=== PATIENT | male | born 1980 | race Hispanic/Latino ===

== ENCOUNTER 2019-07-03 18:37 | Inpatient (IN) | payer OTHER ==
[~2019-07-03] VITALS: Ht 182.9 cm; Wt 124.4 kg
--- OUTSIDE RECORDS SUMMARY | 2019-07-03 18:40 | XMS REPORT | Summary of Care ---
Author Author Fanny Trujillo M.A. Unknown Address Unknown Phone Unavailable Care Team Providers Care Police And Fire Dispatcher Name Role Phone MARION Covington, GREGORIO Unavailable Unavailable ANASTASIA Higgins, THO Unavailable Unavailable MANUEL Covington, LULU Unavailable Unavailable Fanny Trujillo M.A. Unavailable Unavailable FER PAINTING [place], SHREYA Brower Unavailable Unavailable Marion PAINTING, Gregorio Unavailable Unavailable FER Covington, SHREYA Garcia Unavailable Manuel PAINTING, Lulu Unavailable Unavailable Unavailable Unavailable Functional Status Name Dates Details Functional status health issues are not documented Status: Name Dates Details Cognitive status health issues are not documented Status: Problems Name Dates Details Need for immunization against influenza (V04.81, Z23) Status: Active Diabetic retinopathy (250.50, E11.319) Status: Active Diabetic nephropathy (250.40, E11.21) Status: Active Diabetic neuropathy (250.60, E11.40) Status: Active Essential (primary) hypertension (401.9, I10) Status: Active Proteinuria (791.0, R80.9) Status: Active Proliferative diabetic retinopathy (250.50, E11.3599) Status: Active Uncontrolled diabetes mellitus (250.02, E11.65) Status: Active Type 2 diabetes mellitus (250.00, E11.9) Status: Active Cellulitis of left lower extremity (682.6, L03.116) Status: Active Onychomycosis of toenail (110.1, B35.1) Status: Active Edema of left lower extremity (782.3, R60.0) Status: Active Chronic kidney disease, stage III (moderate) (585.3, N18.3) Status: Active Mild nonproliferative diabetic retinopathy of both eyes without macular edema associated with type 2 diabetes mellitus (250.50, E11.3293) Status: Active Acute upper respiratory infection (465.9, J06.9) Status: Active Hyperkalemia (276.7, E87.5) Status: Active PORSHA (acute kidney injury) (584.9, N17.9) Status: Active Uncontrolled type 2 diabetes mellitus with stage 3 chronic kidney disease, with long-term current use of insulin (250.52, E11.22) Status: Active Hyperlipidemia (272.4, E78.5) Status: Active Skin ulcer of left foot, limited to breakdown of skin (707.15, L97.521) Status: Active Subacute osteomyelitis of left foot (730.07, M86.272) Status: Active Hospital discharge follow-up (V67.59, Z09) Status: Active Pain in left knee (719.46, M25.562) Status: Active BMI 37.0-37.9, adult (V85.37, Z68.37) Status: Active Medications Name Dates Details Lisinopril 40 MG Oral Tablet TAKE 1 TABLET DAILY FOR BLOOD PRESSURE. Quantity: 90 GREGORIO SCHULTZ M.D. * Start : 18-Sep-2013 Active Atorvastatin Calcium 40 MG Oral Tablet TAKE 1 TABLET PO DAILY AT BEDTIME. * Quantity: 90 Refills: 1 LULU JACSKON M.D. * Start : 14-May-2014 Active PriLOSEC OTC 20 MG Oral Tablet Delayed Release TAKE 1 TABLET PRN * Refills: 0 Active Multi For Him CAPS TAKE 1 CAPSULE DAILY. * Refills: 0 Active Blood Pressure Monitor Device check blood pressure once a day and record the result * Quantity: 1 Refills: 0 ANASTASIA DSONYA Ricks * Start : 29-Nov-2014 Active amLODIPine Besylate 10 MG Oral Tablet TAKE 1 TABLET DAILY * Quantity: 90 Refills: 1 GREGORIO SCHULTZ M.D. * Start : 02-Jan-2015 Active Furosemide 40 MG Oral Tablet TAKE 1 TABLET DAILY. * Quantity: 90 Refills: 3 GREGORIO SCHULTZ M.D. * Start : 13-Jan-2017 Active Tresiba FlexTouch 200 UNIT/ML Subcutaneous Solution Pen-injector injec 20 U SC daily, adjust as needed to avoid hypoglycemia MDD:50 U * Quantity: 3 Refills: 1 LULU JACKSON M.D. * Start : 01-Feb-2017 Active 3 x 3 ML Pen Tylenol CAPS USE NEEDED * Refills: 0 Active HumaLOG KwikPen 200 UNIT/ML Subcutaneous Solution Pen-injector inject 10 U w/breakfast, 16 U w/lunch and 28 U w/dinner plus CF 1:50>150 mg/dL, adjust as needed for carb intake MDD:60 U * Quantity: 5 Refills: 1 LULU JACKSON M.D. * Start : 09-Mar-2017 Active 2 x 3 ML Pen Vitamin D (Cholecalciferol) 1000 UNIT Oral Capsule take 1 tablet po daily * Quantity: 30 Refills: 2 TERRENCE SCHULTZ M.D.IN * Start : 03-Aug-2018 Active Allergies and Adverse Reactions Name Dates Details [place] ROME (Adverse Event) Reaction: Dizziness, Vomiting, Nausea Status: Active Procedures Procedure Dates Details [QH] PROTEIN, TOTAL W/CREAT, RANDOM URINE Date: 28-May-2019 [QLH] URINALYSIS, COMPLETE Date: 28-May-2019 [QLH] SED RATE BY MODIFIED WESTERGREN Date: 28-Jun-2019 [QLH] VITAMIN B12 Date: 28-Jun-2019 [Q] IRON, TIBC AND FERRITIN PANEL Date: 28-Jun-2019 XRAY Knee series 16984 Date: 26-Jun-2019 Immunization Name Dates Details Influenza on: 29-Sep-2011 Fluzone INJ Lot #: [id number] on: 10-Jul-2014 Influenza Lot #: [id number] on: 27-Aug-2015 Fluzone Quadrivalent 0.5 ML Intramuscular Suspension Prefilled Syringe Lot #: [id number] on: 12-Oct-2017 Family History Name Dates Details Family history of Hypertension (V17.49) Status: Active Family history of Diabetes Mellitus (V18.0) Status: Active Family history of Diabetes mellitus with ESRD (end-stage renal disease) (250.40, E11.22) Status: Active Name Dates Details Family history of borderline diabetes mellitus (V18.0, Z83.3) Status: Active Social History Name Dates Details - Status: Name Dates Details Never smoker Vital Signs Date Test Result Details [id number]:52 BP Systolic 128 mm[Hg] Status: Comments: Location: LUE; Position: Sitting BP Diastolic 75 mm[Hg] Status: Comments: Location: LUE; Position: Sitting Height 72 in Status: Weight 273 lb Status: Body Mass Index Calculated 37.03 kg/m2 Status: Body Surface Area Calculated 2.43 m2 Status: Temperature 98.5 f Status: Comments: Method: Temporal Respiration Rate 16 /min Status: Heart Rate 80 /min Status: 83-Shx-[id number]:54 BP Systolic 119 mm[Hg] Status: Comments: [place] [facility] [place] BP Diastolic 76 mm[Hg] Status: Comments: [place] [facility] [place]: [place] Height 72 in Status: Weight 280.375 lb Status: Body Mass Index Calculated 38.03 kg/m2 Status: Body Surface Area Calculated 2.46 m2 Status: Heart Rate 76 /min Status: Results Date Description Value Details :58 [[facility]] URINALYSIS, COMPLETE UA Turbidity Clear Range: Clear UA Spec Grav 1.012 Range: <=1.030 UA pH 5.0 Range: 5.0-8.0 UA Protein 100 mg/dl (Abnormal) Range: Negative UA Glucose Negative mg/dl Range: Negative UA Ketones Negative mg/dl Range: Negative UA Bili Negative Range: Negative UA Blood Negative Range: Negative UA Nitrite Negative Range: Negative UA Leuk Est Negative Range: Negative UA RBC 1 {/HPF} Range: 0-2 UA WBC <1 {/HPF} Range: 0-5 UA Mucus Few {/LPF} Range: None Seen Urine Hyaline Casts 4 {/LPF} (Above high threshold) Range: 0-2 UA Sq Epi None Seen {/LPF} UA Color Ltyellow UROBILINOGEN <=1.0 mg/dl Range: 0.1-1.0 :58 [] PROTEIN, TOTAL W/CREAT, RANDOM URINE U Creatinine 130.00 mg/dl Comments: No established reference range. Urine Protein Level 151.5 mg/dl Comments: No established reference ranges. U Prot/Creat 1.17 40-Fes-[id number]:50 [[facility]] BASIC METABOLIC PANEL W/EGFR Glucose Lvl 130 mg/dl (Above high threshold) Range: 70-99 Comments: Adult reference range values reflect the clinical guidelinesof the [place] [employer]. Blood Urea Nitrogen 34 mg/dl (Above high threshold) Range: 7-22 Creatinine Lvl 1.80 mg/dl (Above high threshold) Range: 0.50-1.40 Sodium Level 142 {mEq/l} Range: 135-145 Potassium Level 5.3 {mEq/l} (Above high threshold) Range: 3.5-5.1 Chloride Level 111 {mEq/l} (Above high threshold) Range: 95-109 Carbon Dioxide 22 {mEq/l} (Below low threshold) Range: 24-32 AGAP 14.3 {mEq/l} Range: 10.0-20.0 Calcium Level Total 9.2 mg/dl Range: 8.5-10.5 eGFR 47 {ML/MIN/1.7} Comments: The eGFR is calculated using the CKD-EPI formula. In most young, healthyindividuals the eGFR will be >90 mL/min/1.73m2. The eGFR declines with age. AneGFR of 60-89 may be normal in some populations, particularly the elderly, forwhom the CKD-EPI formula has not been extensively validated. Use of the eGFR isnot recommended in the following populations:Individuals with unstable creatinine concentrations, including patients and those with serious co-morbid conditions.Patients with extremes in muscle mass or diet.The data above are obtained from the National Kidney Disease Education Program(NKDEP) which additionally recommends that when the eGFR is used in patientswith extremes of body mass index for purposes of drug dosing, the eGFR shouldbe multiplied by the estimated BMI. :55 Glucose (Point of Care In Office) Glucose POC Lifescan 76 :55 [O] Hemoglobin A1c (in office) HEMOGLOBIN A1c 6.7 :06 [[facility]] LIPID PANEL Chol 233 mg/dl (Above high threshold) Range: <=199 Trig 173 mg/dl (Above high threshold) Range: <=149 HDL Cholesterol 40 mg/dl (Below low threshold) Range: >=61 CHD Risk 5.82 Range: 4.00-7.30 LDL 158 mg/dl (Above high threshold) Range: <=99 VLDL 35 :06 [[facility]] HEPATIC FUNCTION PANEL Total Protein 8.0 g/dl Range: 6.4-8.4 Albumin Lvl 3.9 g/dl Range: 3.5-5.0 Bili Total 0.2 mg/dl Range: 0.2-1.3 Bilirubin Direct <0.1 mg/dl Range: 0.0-0.3 Bilirubin Indirect Unable to Calculate mg/dl Range: 0.0-1.0 Alk Phos 93 u/l Range: 39-136 Comments: The pediatric reference ranges for this test represent a CLSI- basedtransference of the CALIPER database of pediatric reference intervals to the[facility] [place] analyzer (Clinical Biochemistry 46 (2013): 3614-5550). [facility] [employer] has not internally validated these referenceranges and therefore they should be used only in the context of a thoroughclinical assessment. AST 21 u/l Range: 0-37 ALT 32 u/l Range: 0-65 Globulin 4.1 g/dl Range: 2.7-4.2 A/G Ratio 1.0 Range: 0.7-1.6 19-Lnm-[id number]:37 XRAY Knee AP and lateral 13394 Knee AP and lateral SEE NOTES Comments: EXAM: XR LEFT KNEE 2 VIEWSDATE: 06/26/2019 14:37 CDTINDICATION: - pain in left kneeCOMPARISON: NoneTECHNIQUE: AP and lateral radiographs of the kneeFINDINGS: No acute fracture or malalignment is identified.There is no excessive joint fluid. No soft tissue abnormality is identified.IMPRESSION:1. No acute abnormality.--Read by: Morena Garcia MDDictated Date/time: 06/26/19 15:45Electronically Signed by: Morena Garcia MD 06/26/1915:46FINAL REPORT [id number] [[facility]] BASIC METABOLIC PANEL W/EGFR GLUCOSE 114 mg/dl (Normal) Range: 65-139 Comments: Non-fasting reference interval UREA NITROGEN (BUN) 30 mg/dl (Above high threshold) Range: 7-25 CREATININE 1.70 mg/dl (Above high threshold) Range: 0.60-1.35 eGFR NON- 50 {ML/MIN/1.7} (Below low threshold) Range: > OR=60 eGFR 58 {ML/MIN/1.7} (Below low threshold) Range: > OR=60 BUN/CREATININE RATIO 18 {CALC} (Normal) Range: 6-22 SODIUM 138 mmol/L (Normal) Range: 135-146 POTASSIUM 5.2 mmol/L (Normal) Range: 3.5-5.3 CHLORIDE 105 mmol/L (Normal) Range: 98-110 CARBON DIOXIDE 30 mmol/L (Normal) Range: 20-32 CALCIUM 9.7 mg/dl (Normal) Range: 8.6-10.3 88-[id number]:55 [QL] SED RATE BY MODIFIED WESTERGREN SED RATE BY MODIFIED WESTERGREN 96 mm/h (Above high threshold) Range: < OR=15 82-[id number]:55 [QL] CBC (INCLUDES DIFF/PLT) Comments: REPORT COMMENT:FASTING:NO WHITE BLOOD CELL COUNT 9.0 {Thousand/u} (Normal) Range: 3.8-10.8 RED BLOOD CELL COUNT 4.35 {Million/uL} (Normal) Range: 4.20-5.80 HEMAGLOBIN 11.4 g/dl (Below low threshold) Range: 13.2-17.1 HEMATOCRIT 35.5 % (Below low threshold) Range: 38.5-50.0 MCV 81.6 fL (Normal) Range: 80.0-100.0 MCH 26.2 pg (Below low threshold) Range: 27.0-33.0 MCHC 32.1 g/dl (Normal) Range: 32.0-36.0 RDW 14.0 % (Normal) Range: 11.0-15.0 PLATELET COUNT 415 {Thousand/u} (Above high threshold) Range: 140-400 MPV 10.7 fL (Normal) Range: 7.5-12.5 ABSOLUTE NEUTROPHILS 5760 {cells/uL} (Normal) Range: 5152-7727 ABSOLUTE LYMPHOCYTES 2502 {cells/uL} (Normal) Range: 850-3900 ABSOLUTE MONOCYTES 351 {cells/uL} (Normal) Range: 200-950 ABSOLUTE EOSINOPHILS 324 {cells/uL} (Normal) Range: 15-500 ABSOLUTE BASOPHILS 63 {cells/uL} (Normal) Range: 0-200 NEUTROPHILS 64 % (Normal) LYMPHOCYTES 27.8 % (Normal) MONOCYTES 3.9 % (Normal) EOSINOPHILS 3.6 % (Normal) BASOPHILS 0.7 % (Normal) Plan of Care Name Dates Details Planned Observations [QLH] SED RATE BY MODIFIED WESTERGREN On: 12-Jul-2019 Intent Planned Goals not documented Planned Encounters Appointment; GREGORIO SCHULTZ M.D. On: 09-Aug-2019 15:15 Appointment; LULU JACKSON M.D. On: 11-Oct-2019 10:30 Interventions Provided Labs/Procedures/Imaging* [Q] IRON, TIBC AND FERRITIN PANEL; To Be Done: 28 Jun 2019 * [QLH] VITAMIN B12; To Be Done: 28 Jun 2019 Instructions Name Dates Details Instructions not documented Encounters Appointment; GREGORIO SCHULTZ M.D. Encounter Diagnosis: Problem not documented On: 14-Jul-2017 15:15 Appointment; LULU JACKSON M.D. Encounter Diagnosis: Problem not documented On: 12-Oct-2017 14:00 Appointment; GREGORIO SCHULTZ M.D. Encounter Diagnosis: Problem not documented On: 12-Jan-2018 15:15 Appointment; LULU JACKSON M.D. Encounter Diagnosis: Problem not documented On: 01-Feb-2018 9:00 Appointment; GREGORIO SCHULTZ M.D. Encounter Diagnosis: Problem not documented On: 02-Feb-2018 15:30 Appointment; LULU JACKSON M.D. Encounter Diagnosis: Problem not documented On: 10-May-2018 8:00 Appointment; SHREYA MONROE M.D. Encounter Diagnosis: Problem not documented On: 26-Jun-2018 11:30 Appointment; GREGORIO SCHULTZ M.D. Encounter Diagnosis: Problem not documented On: 03-Aug-2018 14:45 Appointment; LULU JACKSON M.D. Encounter Diagnosis: Problem not documented On: 09-Aug-2018 9:00 Appointment; LULU JACKSON M.D. Encounter Diagnosis: Problem not documented On: 07-Nov-2018 9:30 Appointment; LULU JACKSON M.D. Encounter Diagnosis: Problem not documented On: 30-May-2019 16:00 Appointment; LISA CROWDER NP Encounter Diagnosis: Problem not documented On: 26-Jun-2019 12:45
[2019-07-03 19:08] LABS: BASOPHILS # (AUTO) 0.1 (0.0-0.1); BASOPHILS % 0.8 % (0.0-1.0); EOSINOPHILS # (AUTO) 0.3 (0.0-0.4); EOSINOPHILS % 2.8 % (0.0-6.0); HEMATOCRIT 36.7 % (38.2-49.6); HEMOGLOBIN 11.8 g/dL (14.0-18.0); LYMPHOCYTES # (AUTO) 2.6 (1.0-3.2); LYMPHOCYTES % 23.1 % (18.0-39.1); MEAN CORPUSCULAR HGB CONC 32.2 g/dL (31-35); MONOCYTES # (AUTO) 0.9 (0.2-0.8); MONOCYTES % 8.3 % (4.4-11.3); NEUTROPHILS # (AUTO) 7.2 (2.1-6.9); NEUTROPHILS % 64.6 % (38.7-80.0); PLATELET COUNT 353 x10e3/uL (140-360); RED BLOOD COUNT 4.53 x10e6/uL (4.3-5.7); RED CELL DISTRIBUTION WIDTH 14.1 % (11.7-14.4)
[2019-07-03 19:26] LABS: ALBUMIN 3.7 g/dL (3.5-5.0); ALBUMIN/GLOBULIN RATIO 0.8 (0.8-2.0); ANION GAP 14.6 mmol/L (8-16); CALCIUM 9.8 mg/dL (8.4-10.2); CREATININE, SERUM 2.15 mg/dL (0.72-1.25); POTASSIUM 4.6 mmol/L (3.5-5.1)
[2019-07-03] MEDS ORDERED: DEXTROSE 50% SYRINGE 50 ML IV STA (19:29)
--- NOTE | 2019-07-03 19:42 | Diagnostic Imaging Report ---
Exam: Right foot 3 views History: Pain, evaluate for osteomyelitis Comparison: None. Findings: Soft tissue ulceration with osseous erosion of the distal phalanx of the second toe. Degenerative arthrosis of the midfoot. Calcaneal enthesophytes. Impression: Osteomyelitis distal phalanx second toe Signed by: Dr. Juan Pablo Knutson M.D. on 07/03/2019 7:39 PM
[2019-07-03] MEDS ORDERED: DEXTROSE 50% SYRINGE 50 ML IV PRN (20:45)
[2019-07-03] MEDS ORDERED: LISINOPRIL20 MG PO (21:00)
[2019-07-03] MEDS ORDERED: AMLODIPINE BESY10 MG PO (21:01)
[2019-07-03] MEDS ORDERED: LASIX40 MG PO (21:01)
[2019-07-03] MEDS ORDERED: LIPITOR20 MG PO (21:01)
[2019-07-03] MEDS ORDERED: TRESIBA SC (21:02)
[2019-07-03] MEDS ORDERED: VITAMIN D1000 UNI1 PO (21:02)
[2019-07-03] MEDS: INSULIN REGULAR, HUMAN 100 UNIT/1 ML 3ML VIAL SQ SCH (21:14)
--- OUTSIDE RECORDS SUMMARY | 2019-07-03 21:18 | XMS REPORT ---
Author Author [facility] Address Unknown Phone Unavailable Care Team Providers Care Pelletizer Name Role Phone Janna CANNON Unavailable Unavailable Problems This patient has no known problems. Allergies, Adverse Reactions, Alerts This patient has no known allergies or adverse reactions. Medications This patient has no known medications. Results Test Description Test Time Test Comments Text Results Atomic Results Result Comments FOOT LEFT COMPLETE 2019-07-03 19:33:00 [place] [address] Patient Name: CHAPO SNIDER MR #: [id number] : 1980 Age/Sex: 38/M Req #: [id number] Adm Physician: Ordered by: MALDONADO ECKERT MAINTENANCE SUPERVISOR Report #: [id number] Location: ER Room/Bed: Procedure: [id number] DX/FOOT LEFT COMPLETE Exam Date: 07/03/19 Exam Time: 1914 REPORT STATUS: Signed Exam: Right foot 3 views History: Pain, evaluate for osteomyelitis Comparison: None. Findings: Soft tissue ulceration with osseous erosion of the distal phalanx of the second toe. Degenerative arthrosis of the midfoot. Calcaneal enthesophytes. Impression: Osteomyelitis distal phalanx second toe Signed by: Dr. Jacquelyn Diaz M.D. on 07/03/2019 7:39 PM Dictated By: JACQUELYN DIAZ MD 38 Transcribed By: JYO on 07/03/191938 COPY TO: MALDONADO ECKERT MAINTENANCE SUPERVISOR
[2019-07-03 22:00] VITALS: BP 142/54
--- NOTE | 2019-07-03 22:00 | NUR ---
Patient received from ER via stretcher. AAO x 4. Admission history obtained. Initial physical assessment conducted. Patient had no complaints of pain. Respirations even and non-labored. Wound noted to left foot 2nd toe with minimal drainage. Left foot wrapped with 4x 4 gauze and Kerlix. Patient oriented to room, call light and plan of care. Fall precautions implemented. Patient instructed to call for assistance when needed. Call light within reach.
[2019-07-03] MEDS ORDERED: SODIUM CHLORIDE 0.9% 250ML 250 ML ONE (22:12)
[2019-07-03] MEDS: PIPER-TAZ 3.375 GM 50 ML IV SCH (22:15)
[2019-07-03] MEDS: VANCOMYCIN 1GM/NS 250 ML 250 ML IV SCH (22:45)
--- NOTE | 2019-07-03 22:51 | NUR ---
Dr. James here to see patient . New order received for "Consult" for Dr. Aaron.
[2019-07-04] VITALS (7 sets, daily range): BP systolic 110–141; BP diastolic 75–89
--- NOTE | 2019-07-04 00:15 | History and Physical ---
REASON FOR ADMISSION: Osteomyelitis of the 2nd toe on the left foot. HISTORY OF PRESENT ILLNESS: The patient is a 38-year-old gentleman, who osteomyelitis. He has been admitted for further evaluation and treatment with the customer supply coordinator. PAST MEDICAL HISTORY: Significant for diabetes, chronic kidney disease stage 3, and hyperlipidemia. MEDICATIONS: See MAR. ALLERGIES: NONE. SOCIAL HISTORY: Nonsmoker and nondrinker. FAMILY HISTORY: Diabetes. PHYSICAL EXAMINATION: VITAL SIGNS: Temperature 98.6, blood pressure 136/74, pulse 74, and sats 100% on room air. GENERAL: In no apparent distress. NECK: Supple. No lymphadenopathy. CARDIOVASCULAR: Regular rate and rhythm. LUNGS: Clear to auscultation bilaterally. ABDOMEN: Good bowel sounds. Soft and nontender. EXTREMITIES: No clubbing or cyanosis. His left toe was already wrapped and bandaged. NEUROLOGIC: Nonfocal. ASSESSMENT AND PLAN: 1. Osteomyelitis of the 2nd toe on the left foot. Continue with current care. We will consult Infectious Disease and Podiatry is going to perform an I and D. 2. Diabetes. Continue with current care and monitoring. 3. Chronic kidney disease stage 3. Continue to monitor. 4. Leukocytosis, continue to monitor. 5. Anemia. We will continue to monitor. 6. Obesity. The patient was instructed about diet better. 7. Hyperlipidemia. Continue with his medications. Please see also chart for full details. MD BRISA Dalal/ALEXANDER /[id number]
[2019-07-04] MEDS: PIPER-TAZ 3.375 GM 50 ML IV SCH ×4 (04:00→22:00)
[2019-07-04 05:51] LABS: ANION GAP 14.3 mmol/L (8-16); CALCIUM 9.4 mg/dL (8.4-10.2); CREATININE, SERUM 1.93 mg/dL (0.72-1.25); POTASSIUM 4.3 mmol/L (3.5-5.1)
--- NOTE | 2019-07-04 06:13 | NUR ---
Dr. Mariah Aaron and Keerthi Marie paged regarding "Consult" for patient. Awaiting call back.
--- NOTE | 2019-07-04 07:00 | NUR ---
Walking rounds done. Patient resting comfortably. Shift report given to oncoming nurse.
[2019-07-04] MEDS: INSULIN REGULAR, HUMAN 100 UNIT/1 ML 3ML VIAL SQ SCH ×4 (07:30→21:00)
--- NOTE | 2019-07-04 07:43 | Progress Note ---
DATE: SUBJECTIVE: The patient did well overnight. No new complaints. He states he has good control of his discomfort. OBJECTIVE: VITAL SIGNS: Stable. He is afebrile. GENERAL: No apparent distress. CARDIOVASCULAR: Regular rate and rhythm. LUNGS: Clear to auscultation bilaterally. ABDOMEN: Good bowel sounds. Soft, nontender. EXTREMITIES: No clubbing or cyanosis. Left foot is bandaged. NEUROLOGIC: Nonfocal. ASSESSMENT AND PLAN: 1. Left foot osteomyelitis. Continue with antibiotics. Podiatry is going to see the patient today. 2. Chronic kidney disease stage 3. Continue to monitor p.r.n. 3. Anemia. Continue to monitor p.r.n. 4. Leukocytosis. We will check a CBC after few days being on antibiotics. 5. Hypertension. Continue with current care and monitoring. Please see hospital chart for full details. MD BRISA Dalal/ALEXANDER /[id number]
[2019-07-04] MEDS: CHOLECALCIFEROL 1,000 UNIT TAB PO SCH (08:36)
[2019-07-04] MEDS: LISINOPRIL 20 MG TAB PO SCH (08:36)
--- NOTE | 2019-07-04 15:30 | NUR ---
38 YO Male diabetic patient presents with ulceration to Lft 2nd toe . Foot dry with local edema noted wound bed has slough and granulation present with no drainage or smell noticed Labs WBC 11.2 Glucose 140 mg/dl X-ray positive for osteo Upon full skin assessment no other skin alterations noted Dr Moya contacted orders recieved RBTO Obtain consent for debridement to bone to Lft 2nd toe NPO after midnight Betadine daily Lft 2nd toe cover with 4x4 and wrap with kerlix Follow up outpatient wound care after discharge Addendum: 07/04/19 at 1545 by Charanjit Umanzor RN Amended: Links added.
--- NOTE | 2019-07-04 16:58 | Diagnostic Imaging Report ---
EXAM: CHEST 2 VIEWS DATE: 07/04/2019 3:56 PM INDICATION: Preoperative evaluation, foot surgery COMPARISON: None FINDINGS: The trachea is midline. The lungs are symmetrically expanded without evidence for large focal consolidation, pneumothorax, or significant pleural effusion. The cardiomediastinal silhouette and pulmonary vasculature are within normal limits. No acute osseous abnormality is identified. The surrounding soft tissues are unremarkable. IMPRESSION: No acute cardiopulmonary process identified. Signed by: Dr. Bobby Vasquez MD on 07/04/2019 4:55 PM
--- NOTE | 2019-07-04 18:31 | Consultation ---
DATE OF CONSULTATION: REASON FOR CONSULTATION: Infection of the foot. HISTORY OF PRESENT ILLNESS: This patient, who is a very pleasant 38-year-old male with diabetes mellitus, when he was in [place] on June 17, he hit his foot. He went to the hospital. He was there for a week. The patient was discharged home because he did not want to go any procedure there. He just came here, he saw his physician, who told him to be admitted for IV antibiotic. I was asked to see him. The patient who is currently lying in bed comfortably. The patient was admitted since he failed antibiotic. He is telling me his left 2nd toe is red and swollen. He took an oral antibiotic without any improvement. The patient is being admitted. PAST MEDICAL HISTORY: Obesity, diabetes mellitus. PAST SURGICAL HISTORY: Denies. ALLERGIES: NKA. SOCIAL HISTORY: There is no smoking, drug abuse, or alcohol abuse. FAMILY HISTORY: Otherwise diabetes mellitus. REVIEW OF SYSTEMS: HEENT: Negative. PULMONARY: Negative. CARDIAC: Negative. : Negative. GI: Negative. SKIN: There are no other rashes. LABORATORY DATA: White count 11.12, hemoglobin 11.8. Sodium 136, potassium 4.3, creatinine 1.93. PHYSICAL EXAMINATION: GENERAL: He is currently alert, oriented, does not seem to be in acute distress. VITAL SIGNS: Stable, currently afebrile. HEENT: Not icteric. NECK: Supple. CHEST: Clear. HEART: . ABDOMEN: Soft. EXTREMITIES: Foot, there is redness and swelling of the 2nd toe. IMPRESSION: 1. Osteomyelitis of the left 2nd toe. 2. Chronic kidney disease. 3. Diabetes mellitus. Agree with IV fluid. Agree with surgical debridement . Continue vancomycin and Zosyn. We will adjust for kidney function. Follow vancomycin trough. for IV antibiotic. We will follow. MD JUANA Mittal/ALEXANDER /[id number]
--- NOTE | 2019-07-04 19:35 | NUR ---
Patient received sitting by bedside. AAO x 4. No complaints of pain. Respirations even and non-labored. Fall precautions implemented. Call light within reach.
--- NOTE | 2019-07-04 20:15 | NUR ---
Patient instructed about upcoming I & D procedure and NPO status after midnight. Patient verbalized understanding. Patient voluntarily signed "Disclosure and Consent" form.
[2019-07-04] MEDS: AMLODIPINE BESYLATE 10 MG TAB PO SCH (21:54)
[2019-07-04] MEDS: ATORVASTATIN 20 MG TAB PO SCH (21:54)
[2019-07-04] MEDS ORDERED: SODIUM CHLORIDE 0.9% 250ML 250 ML ONE (22:17)
[2019-07-04] MEDS: VANCOMYCIN 1GM/NS 250 ML 250 ML IV SCH (22:22)
[2019-07-05] VITALS (7 sets, daily range): BP systolic 113–124; BP diastolic 70–80
--- NOTE | 2019-07-05 00:30 | NUR ---
Blood transfusion after bedside verification. Addendum: 07/05/19 at 0526 by Tammy Leavitt RN NOTE: Disregard above entry. Reason: Wrong patient.
[2019-07-05] MEDS: PIPER-TAZ 3.375 GM 50 ML IV SCH ×4 (04:00→22:00)
--- NOTE | 2019-07-05 07:00 | NUR ---
Shift report given to oncoming nurse.
[2019-07-05] MEDS: INSULIN REGULAR, HUMAN 100 UNIT/1 ML 3ML VIAL SQ SCH ×4 (07:30→21:28)
[2019-07-05] MEDS: LISINOPRIL 20 MG TAB PO SCH (09:25)
--- NOTE | 2019-07-05 11:30 | NUR ---
Patient left the floor for EGD
[2019-07-05] MEDS ORDERED: NEOSTIGMINE 1 MG/ML 10ML VIAL ONE (11:44)
[2019-07-05] MEDS ORDERED: BUPIVACAINE HCL 0.5% INJ 30 ML VIAL INJ ONE (11:44)
[2019-07-05] MEDS ORDERED: BACITRACIN 50,000 UNIT VIAL ONE (11:44)
[2019-07-05] MEDS: CHOLECALCIFEROL 1,000 UNIT TAB PO SCH (16:48)
[2019-07-05] MEDS ORDERED: ACETAMINOPHEN 1000 MG/100 ML IV ONE (17:49)
[2019-07-05] MEDS ORDERED: ONDANSETRON HCL INJ 2MG/ML 2ML 2 MG/ML VIAL ONE (17:49)
[2019-07-05] MEDS ORDERED: LIDOCAINE HCL 2% LOCAL INJ 5 ML SDV VIAL INJ ONE (17:49)
[2019-07-05] MEDS ORDERED: PROPOFOL IV EMULSION 10 MG/ML 20 ML VIAL ONE (17:49)
[2019-07-05] MEDS ORDERED: EPHEDRINE SULFATE INJ 50 MG/10 ML SYR ONE (17:49)
[2019-07-05] MEDS ORDERED: SEVOFLURANE INHAL SOLN 250 ML PEN BTL ONE (17:49)
[2019-07-05] MEDS ORDERED: FENTANYL CITRATE/PF 100MCG/2 ML INJ ONE (18:40)
--- NOTE | 2019-07-05 18:53 | Operative Report ---
DATE OF PROCEDURE: 07/05/2019 SURGEON: Beckie Bob DPM PREOPERATIVE DIAGNOSES: 1. Diabetic foot ulcer grade 3, left 2nd. 2. Diabetes with neuropathy. POSTOPERATIVE DIAGNOSES: 1. Diabetic foot ulcer grade 3, left 2nd. 2. Diabetes with neuropathy. PROCEDURES: 1. Debridement to include bone with partial primary closure of the ulcer, left 2nd. 2. Remaining failing cultures and sensitivities. COMPLICATIONS: None. CONDITION: Stable. PROCEDURE IN DETAIL: Under mild sedation, the patient was brought to the operating room and placed on the operating table in a supine position. Following IV sedation, anesthesia was obtained with a general anesthetic. At this point, the left foot scrubbed, prepped, and draped in the usual aseptic manner. It was then lowered to the table. Attention was then directed to the distal aspect of the left 2nd digit, where a fishmouth-type incision was made overlying the ulcer down to the level of the bone. The incision was deepened down to the level of the bone. The distal phalanx was then disarticulated at the distal aspect, where the ulcer was present, was passed from the operating table and sent for pathology. The remaining bone was not soft. A culture and sensitivity were taken of it after copious irrigation with bacitracin to the area. After copious irrigation with a pressure apartment community manager 2000 mL, all bleeders were cauterized. Human allograft was then inserted into the area of the ulcer in order to augment healing and to prevent further ulcerations. The area was then partially closed with simple interrupted sutures with 4-0 nylon. Clean dressing was applied consisting of Adaptic, 4x4s, and Kerlix. The patient tolerated the procedure and anesthesia well without complications, was transported to recovery room with vital signs stable and vascular status intact to both feet. The patient will be re-admitted back into the hospital. I will wait for cultures to become final. I suspect he is going to be discharged home by Tuesday once the cultures are final. He will be nonweightbearing and once discharged home, he will follow up with me. I have answered all questions. Beckie Bob DPM ER/MODL /[id number]
--- NOTE | 2019-07-05 19:08 | Consultation ---
DATE OF CONSULTATION: 07/05/2019 Podiatry Surgery Consultation HISTORY OF PRESENT ILLNESS: This is a patient, who is known to my practice. I met him last week. He has had an ulcer for a couple of months now. He was living in [place]. He had been in the hospital in [place] where he was treated, but he was discharged. The ulcer continued to worsen and he came into the office with a red draining toe. PAST MEDICAL HISTORY: Diabetes mellitus, kidney disease, hyperlipidemia. MEDICATIONS: Please refer to MAR. Of interest to this consult are vanc and Zosyn. ALLERGIES: NO KNOWN ALLERGIES. REVIEW OF SYSTEMS: Ulcer to the left 2nd lower extremity. PHYSICAL EXAMINATION: EXTREMITIES: Pedal pulses are palpable. Capillary filling time 5 seconds. Pedal hair growth is present. There is a full-thickness ulcer down to the level of the bone at the left 2nd. The ulcer measures approximately 2 cm in diameter. Erythema and edema are beginning to localize, it is extensive to DIP and intrinsic minus type foot, protective threshold absent. IMAGING STUDIES: X-ray of the left foot it is positive for osteomyelitis of the distal phalanx. LABORATORY DATA: His white blood count is 11.2, his ESR is 58, and his CRP is pending. His hemoglobin A1c is 7. ASSESSMENT: 1. Diabetic foot ulcer grade 3, left. 2. Diabetes with neuropathy. 3. Kidney disease. PLAN: At this point, he came in here for IV antibiotic to become medically stable. He is having surgery today. I want debride the bone down to clean viable tissue. After debridement and irrigation, I will take cultures and sensitivities of the remaining bone. He is currently on IV antibiotics. He will continue to be nonweightbearing after surgery. The dressing will stay intact and once cultures are final, he will follow up outpatient. He continues to improve. Thank you for letting me participate in the care of this patient. DENNY Miramontes/ALEXANDER /[id number]
[2019-07-05] MEDS: ATORVASTATIN 20 MG TAB PO SCH (21:05)
[2019-07-05] MEDS: AMLODIPINE BESYLATE 10 MG TAB PO SCH (21:05)
[2019-07-05] MEDS: VANCOMYCIN 1GM/NS 250 ML 250 ML IV SCH (22:45)
[2019-07-05] MEDS: ACETAMINOPHEN 325 MG TAB PO PRN (23:06)
[2019-07-06] VITALS (7 sets, daily range): BP systolic 115–140; BP diastolic 67–87
[2019-07-06] MEDS: PIPER-TAZ 3.375 GM 50 ML IV SCH ×4 (03:51→22:17)
--- NOTE | 2019-07-06 07:00 | NUR ---
BEDSIDE SHIFT REPORT RECEIVED FROM THE OIL EXPELLER OPERATOR RN. PT DENIES NEEDS AT THIS TIME.
[2019-07-06] MEDS: INSULIN REGULAR, HUMAN 100 UNIT/1 ML 3ML VIAL SQ SCH ×4 (07:30→21:21)
[2019-07-06 08:56] LABS: BASOPHILS # (AUTO) 0.1 (0.0-0.1); BASOPHILS % 0.8 % (0.0-1.0); EOSINOPHILS # (AUTO) 0.4 (0.0-0.4); EOSINOPHILS % 3.4 % (0.0-6.0); HEMATOCRIT 34.2 % (38.2-49.6); HEMOGLOBIN 10.9 g/dL (14.0-18.0); LYMPHOCYTES # (AUTO) 2.7 (1.0-3.2); LYMPHOCYTES % 22.3 % (18.0-39.1); MEAN CORPUSCULAR HEMOGLOBIN 26.3 pg (28-32); MEAN CORPUSCULAR HGB CONC 31.9 g/dL (31-35); MEAN CORPUSCULAR VOLUME 82.4 fL (81-99); MONOCYTES # (AUTO) 0.9 (0.2-0.8); MONOCYTES % 7.1 % (4.4-11.3); NEUTROPHILS # (AUTO) 7.9 (2.1-6.9); PLATELET COUNT 294 x10e3/uL (140-360); RED BLOOD COUNT 4.15 x10e6/uL (4.3-5.7); RED CELL DISTRIBUTION WIDTH 14.4 % (11.7-14.4)
[2019-07-06] MEDS: CHOLECALCIFEROL 1,000 UNIT TAB PO SCH (09:40)
[2019-07-06] MEDS: LISINOPRIL 20 MG TAB PO SCH (09:40)
--- NOTE | 2019-07-06 10:56 | Progress Note ---
DATE: 07/06/2019 SUBJECTIVE: The patient is lying in bed, no complaints. He says he has no pain. OBJECTIVE: On exam, the sutures are intact. The skin at the area of the wound looks viable. Erythema and edema only consistent with the level of surgical intervention. Negative Homans sign. Pedal pulses palpable. Muscle mass is symmetrical. Protective threshold is absent. ASSESSMENT: 1. Status post debridement to bone, left 2nd. 2. Ulcer grade 3, left 2nd. 3. Diabetes with neuropathy. 4. Kidney disease. PLAN: At this point, the cultures so far are negative. I am going to wait for final cultures. I suspect he should be back by Tuesday. He will continue on IV antibiotics. Once discharged, he will go home and he will follow up with me as an outpatient. He is to be nonweightbearing to use the fracture boot and PT will help him with crutches or walker. I will continue to follow on Tuesday. I will remove the dressing and if the cultures are negative, I am going to recommend he go home. DENNY Miramontes/ALEXANDER /[id number]
--- NOTE | 2019-07-06 19:00 | NUR ---
BEDSIDE SHIFT REPORT GIVEN TO THE IN FLIGHT REFUELING OPERATOR RN. PT DENIED FURTHER NEEDS.
[2019-07-06] MEDS: ATORVASTATIN 20 MG TAB PO SCH (21:21)
[2019-07-06] MEDS: AMLODIPINE BESYLATE 10 MG TAB PO SCH (21:22)
[2019-07-06] MEDS: VANCOMYCIN 1GM/NS 250 ML 250 ML IV SCH (22:55)
[2019-07-07] VITALS (7 sets, daily range): BP systolic 116–146; BP diastolic 70–89
[2019-07-07] MEDS: PIPER-TAZ 3.375 GM 50 ML IV SCH ×4 (04:15→22:17)
--- NOTE | 2019-07-07 06:58 | NUR ---
BEDSIDE SHIFT REPORT GIVEN TO ONCOMING NURSE.PT RESTING IN BED WITH NO S/S OF DISTRESS.
--- NOTE | 2019-07-07 07:00 | NUR ---
BEDSIDE SHIFT REPORT RECEIVED FROM THE APPIAN DEVELOPER RN. PT DENIES NEEDS AT THIS TIME.
[2019-07-07] MEDS: INSULIN REGULAR, HUMAN 100 UNIT/1 ML 3ML VIAL SQ SCH ×4 (07:30→21:15)
[2019-07-07] MEDS: LISINOPRIL 20 MG TAB PO SCH (09:15)
[2019-07-07] MEDS: CHOLECALCIFEROL 1,000 UNIT TAB PO SCH (09:15)
--- NOTE | 2019-07-07 10:45 | NUR ---
PT OFF UNIT WITH PT FOR TRAINING WITH CRUTCHES.
--- NOTE | 2019-07-07 11:15 | NUR ---
PT BACK TO UNIT AFTER PT EVALUATION
--- NOTE | 2019-07-07 17:18 | Progress Note ---
DATE: SUBJECTIVE: Mr. Laughlin is doing well. No new complaint. REVIEW OF SYSTEMS: HEENT: Negative. PULMONARY: Negative. CARDIAC: Negative. The patient is status post debridement of the left second toe all the way to the bone ulcer stage 3 on the left second toe. The patient is currently lying in bed comfortably. No complaints. Review of systems is negative. His culture is still pending. PHYSICAL EXAMINATION: GENERAL: Currently alert, oriented, does not seem in acute distress. VITAL SIGNS: Stable, currently afebrile. HEENT: He is not icteric. NECK: Supple. CHEST: Clear. HEART: S1 and S2. No murmurs. ABDOMEN: Soft. IMPRESSION: Osteomyelitis of the left foot, status post debridement, chronic kidney disease, diabetes mellitus, neuropathy. Continue with current choice of the antibiotic. Awaiting for culture and sensitivity. We will follow. MD JUANA Mittal/ALEXANDER /[id number]
--- NOTE | 2019-07-07 18:58 | NUR ---
BEDSIDE SHIFT REPORT GIVEN TO THE SPEAKER MOUNTER RN. PT DENIED FURTHER NEEDS.
[2019-07-07] MEDS: AMLODIPINE BESYLATE 10 MG TAB PO SCH (21:15)
[2019-07-07] MEDS: ATORVASTATIN 20 MG TAB PO SCH (21:15)
[2019-07-07] MEDS: VANCOMYCIN 1GM/NS 250 ML 250 ML IV SCH (23:00)
[2019-07-08] VITALS (8 sets, daily range): BP systolic 117–140; BP diastolic 71–86
[2019-07-08] MEDS: PIPER-TAZ 3.375 GM 50 ML IV SCH ×4 (04:30→22:45)
[2019-07-08] MEDS: ACETAMINOPHEN 325 MG TAB PO PRN ×2 (04:52→21:45)
--- NOTE | 2019-07-08 06:57 | NUR ---
REPORT GIVEN TO ONCOMING NURSE,WALKING ROUNDS MADE.PT RESTING IN BED WITH NO S/S OF DISTRESS.
[2019-07-08] MEDS: INSULIN REGULAR, HUMAN 100 UNIT/1 ML 3ML VIAL SQ SCH ×4 (07:58→20:44)
[2019-07-08] MEDS: LISINOPRIL 20 MG TAB PO SCH (09:05)
[2019-07-08] MEDS: CHOLECALCIFEROL 1,000 UNIT TAB PO SCH (09:05)
--- NOTE | 2019-07-08 11:16 | Progress Note ---
DATE: SUBJECTIVE: This patient is here for cellulitis of the left toe, diabetic foot ulcer, and also osteomyelitis of the left foot. The patient is currently on antibiotic, Zosyn, and vancomycin. The patient is also getting insulin for diabetes and lisinopril for blood pressure control and on atorvastatin for hyperlipidemia. Complains of some sweating at nighttime, otherwise asymptomatic, pain is controlled. OBJECTIVE: VITAL SIGNS: Temperature is 98.2, T-max of 99.5 at 05:47 this morning, blood pressure is 117/75, pulse oximetry of 98 %. HEENT: Normocephalic and atraumatic. Pupils are reactive to light and accommodation. CVS: S1, S2 normal. Regular rate and rhythm. ABDOMEN: Nontender and nondistended. EXTREMITIES: No clubbing. Positive for vascular changes, dermatitis, left foot in bandage. LABORATORY VALUES: White count is 11.91, no left shift present. Chemistries: Blood sugars have been running in the 140s to 221s. Toxicology, vancomycin trough is 6.9. ASSESSMENT: 1. A 38-year-old gentleman with osteomyelitis of the left foot status post debridement by Dr. Moya. 2. Uncontrolled diabetes, is on insulin sliding scale. 3. Hyperlipidemia, continue on atorvastatin. 4. Status post debridement with Dr. Moya and also neuropathy. Further recommendation per course. Medicine has been noted. We will continue to monitor the patient and will follow up with ID and podiatry. MD MARIBEL Roper/JUANL /[id number]
--- NOTE | 2019-07-08 15:25 | NUR ---
Visit made by the Spiritual Care Department Pastoral Visitor, Hans Lagunas. PV provided pastoral presence, hospitality, and supportive listening. Pastoral Visitor informed pt/family of the scope of [employer] and availability. TAIWO RAMOS [employer] Spiritual Care Department O: [phone] Pager: [phone] ([phone] number calling from)
[2019-07-08] MEDS: AMLODIPINE BESYLATE 10 MG TAB PO SCH (20:48)
[2019-07-08] MEDS: VANCOMYCIN 1GM/NS 250 ML 250 ML IV SCH (20:48)
[2019-07-08] MEDS: ATORVASTATIN 20 MG TAB PO SCH (20:48)
[2019-07-08] MEDS ORDERED: SODIUM CHLORIDE 0.9% 250ML 250 ML ONE (21:03)
[2019-07-09] VITALS: BP 121/75
--- NOTE | 2019-07-09 00:48 | Progress Note ---
DATE: 07/08/2019 SUBJECTIVE: The patient at bedside, accompanied by spouse, doing well. Denies any history of fever, chills, nausea, or vomiting. OBJECTIVE: VITAL SIGNS: Afebrile, pulse 84, respirations 18, O2 saturation 100% with a blood pressure of 127/78. LABORATORY DATA: Has a white blood cell count of 11.9, hemoglobin 10.9 with a platelet count of 294. There is some bloody strikethrough to the 2nd toe, left foot. The patient relates these as minimal pain and discomfort. ASSESSMENT: Status post left foot surgery per Dr. Moya. PLAN: We will continue IV antibiotics. Continue offloading. Dr. Moya will follow up on Tuesday. DENNY Saucedo/ALEXANDER /[id number]
[2019-07-09] MEDS: PIPER-TAZ 3.375 GM 50 ML IV SCH ×2 (04:23→09:30)
[2019-07-09] MEDS: ACETAMINOPHEN 325 MG TAB PO PRN (04:25)
[2019-07-09 04:35] VITALS: BP 122/79
[2019-07-09] MEDS ORDERED: KETOROLAC TROMETHAMINE 30 MG/ML VIAL IV STA (04:59)
[2019-07-09 05:36] LABS: BASOPHILS # (AUTO) 0.1 (0.0-0.1); BASOPHILS % 0.6 % (0.0-1.0); EOSINOPHILS # (AUTO) 0.3 (0.0-0.4); EOSINOPHILS % 2.4 % (0.0-6.0); HEMATOCRIT 33.6 % (38.2-49.6); HEMOGLOBIN 10.9 g/dL (14.0-18.0); LYMPHOCYTES # (AUTO) 2.1 (1.0-3.2); LYMPHOCYTES % 20.7 % (18.0-39.1); MEAN CORPUSCULAR HEMOGLOBIN 25.9 pg (28-32); MEAN CORPUSCULAR HGB CONC 32.4 g/dL (31-35); MEAN CORPUSCULAR VOLUME 79.8 fL (81-99); MONOCYTES % 9.9 % (4.4-11.3); NEUTROPHILS # (AUTO) 6.8 (2.1-6.9); NEUTROPHILS % 66.1 % (38.7-80.0); PLATELET COUNT 283 x10e3/uL (140-360); RED BLOOD COUNT 4.21 x10e6/uL (4.3-5.7); RED CELL DISTRIBUTION WIDTH 13.7 % (11.7-14.4)
[2019-07-09 06:05] LABS: ALBUMIN 2.9 g/dL (3.5-5.0); ALBUMIN/GLOBULIN RATIO 0.6 (0.8-2.0); ANION GAP 15.2 mmol/L (8-16); CALCIUM 9.7 mg/dL (8.4-10.2); CREATININE, SERUM 1.92 mg/dL (0.72-1.25); MAGNESIUM 1.6 MG/DL (1.3-2.1); POTASSIUM 4.2 mmol/L (3.5-5.1)
[2019-07-09 08:00] VITALS: BP 101/70
[2019-07-09] MEDS: INSULIN REGULAR, HUMAN 100 UNIT/1 ML 3ML VIAL SQ SCH ×3 (08:30→17:01)
--- NOTE | 2019-07-09 08:30 | NUR ---
Dr. Bob at bedside changing dressing to left foot. Per Dr. Moya patient can dc home today and f/u in the clinic this Tuesday.
[2019-07-09 08:43] VITALS: BP 122/79
[2019-07-09] MEDS: LISINOPRIL 20 MG TAB PO SCH (09:30)
[2019-07-09] MEDS: CHOLECALCIFEROL 1,000 UNIT TAB PO SCH (09:30)
--- NOTE | 2019-07-09 10:29 | NUR ---
Notified Dr. James that Dr. Moya said patient can dc home and final wound cultures were negative. Per Dr. James, need to check with ID first if patient is clear for dc home.
--- NOTE | 2019-07-09 10:30 | NUR ---
Paged Dr. Aaron to see if possible for patient to dc home today, Awaiting call back.
--- NOTE | 2019-07-09 11:16 | Progress Note ---
DATE: 07/09/2019 SUBJECTIVE: The patient was seen at bedside. He is doing well. The dressing was removed today. The sutures are intact. Erythema and edema are minimal only to the level of surgical intervention. Pedal pulses are palpable. Protective threshold is absent. Muscle mass is symmetrical. Otherwise, the incision is healing well. ASSESSMENT: 1. Diabetes foot ulcer, grade 3. 2. Status post debridement of nonviable tissue with partial primary closure. 3. Neuropathy. 4. Kidney disease. PLAN: Discussed treatment with the patient. At this point, the cultures are now negative. His white blood count is trending down, he is down to 10.33. The wound is improving. I am going to recommend discharge home. I suspect he is going to go on oral antibiotics by Infectious Disease. He will follow up with me in the office on Tuesday and I will continue to follow. He is nonweightbearing to the lower extremity. DENNY Miramontes/ALEXANDER /[id number]
--- NOTE | 2019-07-09 11:59 | NUR ---
Spoke to Bailey at Dr. Aaron's office, who states she has pt's abx ready. Can come today anytime before 4 pm. Informed her we are pending central line placement. She states if pt gets central line placed and gets abx dose today and discharges, he can come into office tomorrow at 10am. LIVIA Carolina was updated. [facility] [address] [place] [address] [address] [place] [address]
[2019-07-09 12:00] VITALS: BP 112/72
--- NOTE | 2019-07-09 12:26 | NUR ---
PROVIDED ROLLING WALKER TO PATIENT PER ORDER, OBTAINED SIGNATURES AND WILL FILE IN PACU FOR COMPLETION OF FILING.
[2019-07-09] MEDS ORDERED: DAPTOMYCIN 500mg 10ML 500 MG in SODIUM CHLORIDE 0.9% 100 ML IV SCH (13:00)
[2019-07-09] MEDS ORDERED: LIDOCAINE HCL 1% LOCAL INJ 20 ML VIAL ONE (14:42)
[2019-07-09 14:56] LABS: INR 1.02; PROTHROMBIN TIME 13.9 seconds (11.9-14.5)
[2019-07-09 14:57] LABS: PARTIAL THROMBOPLASTIN TIME 35.4 seconds (23.8-35.5)
--- NOTE | 2019-07-09 15:26 | NUR ---
Nutrition Screen Note RD Recommendation for Physician: - Continue current diet - BG and insulin management per MD Plan of Care: RD following, monitoring for tolerance and adequacy Nutrition reason for involvement: LOS Primary Diagnose(s): Cellulitis and osteomyelitis of 2nd tow of L foot PMH: DM, CKD, hyperlipidemia, obesity Ht: 72 in Wt: 274.25 lb BMI: 37.2 kg/m2 IBW: [address] Assessment: (07/09) 38 YOM admitted for cellulitis of the L foot. Pt with good po intake, noted 95-100% po per chart. No reported GI distress, LBM 07/08. No reported wt loss. Pt discussed during am rounds. Chart reviewed. Labs and meds reviewed, BG fluctuations noted- currently on insulin. Will monitor and continue to follow. Current Diet: 1800 ADA Malnutrition Evaluation (07/09/19) The patient does not meet criteria for a specified degree of malnutrition at this time. Will re-evaluate at follow-up as appropriate. Diet Education Needs Assessment: Diet education not indicated. Nutrition Care Level: Low Signed: Nancy Carney RD, LD, [facility]
[2019-07-09 16:00] VITALS: BP 120/77
--- NOTE | 2019-07-09 17:37 | Diagnostic Imaging Report ---
PROCEDURE: Tunneled central venous catheter placement Procedural Personnel Attending physician(s): Amanda Dacosta MD Fellow physician(s): None Resident physician(s): None Advanced practice provider(s): None Pre-procedure diagnosis: Cellulitis, bacteremia Post-procedure diagnosis: Same Indication: Administration of assisted antibiotics Additional clinical history: None Complications: No immediate complications. IMPRESSION: Insertion of right-sided dual lumen tunneled Proline catheter, with tip in the expected location of the cavoatrial junction. Plan: The catheter may be used immediately. PROCEDURE SUMMARY: - Venous access with ultrasound guidance - Tunneled central venous catheter insertion with fluoroscopic guidance - Additional procedure(s): None PROCEDURE DETAILS: Pre-procedure Consent: Informed consent for the procedure including risks, benefits and alternatives was obtained and time-out was performed prior to the procedure. Preparation (MIPS): The site was prepared and draped using all elements of maximal sterile barrier technique including sterile gloves, sterile gown, cap, mask, large sterile sheet, sterile ultrasound probe cover, hand hygiene and cutaneous antisepsis with 2% chlorhexidine. Medical reason for site preparation exception (MIPS): Not applicable Anesthesia/sedation Level of anesthesia/sedation: No sedation Access Local anesthesia was administered. The vessel was sonographically evaluated and determined to be patent. Real time ultrasound was used to visualize needle entry into the vessel and a permanent image was stored. Vein accessed: Internal jugular vein Access technique: Micropuncture set with 21 gauge needle Catheter placement An incision was made near the venous access site and the catheter was tunneled subcutaneously to the venous access site and trimmed to appropriate length. The catheter was advanced via a peel-away sheath into the vein under fluoroscopic guidance. Catheter tip location was fluoroscopically verified and a permanent image was stored. Catheter placed: Power injectable dual lumen Proline Catheter size (Guinean): 6 Catheter flush: Normal saline Closure A sterile dressing was applied. Access site closure technique: Tissue adhesive Catheter securement technique: Non-absorbable suture Contrast Contrast agent: None Radiation Dose Fluoroscopy time (minutes): 0.3 Reference air kerma (mGy): 3.1 Additional Details Additional description of procedure: None Equipment details: None Specimens removed: None Estimated blood loss (mL): Less than 10 Standardized report: [email or web address] Attestation Signer name: Amanda Dacosta MD I attest that I was present for the entire procedure. I reviewed the stored images and agree with the report as written. Signed by: Amanda Dacosta MD on 07/09/2019 5:34 PM
--- NOTE | 2019-07-09 17:42 | NUR ---
CVC is OK to use per radiologist orders. Notified Dr. James of succesful placement of central line and that patient has received dose IV antibiotic and has appointment setup for Dr. Aaron's office tomorrow at 1000. Per Dr. James, OK to ak home today
--- NOTE | 2019-07-22 16:40 | Discharge Summary ---
DISCHARGE DIAGNOSES: Osteomyelitis of the left foot. HISTORY OF PRESENT ILLNESS AND HOSPITAL COURSE: See hospital chart for full details. The patient is a gentleman with history of diabetes with osteomyelitis of the left foot, who had an I and D done performed by Podiatry without any complications. He was seen by Dr. Aaron, who placed the patient on IV antibiotics. He had a PICC line placed. He was then set up for IV antibiotics as an outpatient. At the time of discharge, he felt well and he will follow up with Dr. Aaron as well as Podiatry. Please see hospital chart for full details. MD BRISA Dalal/ALEXANDER /[id number]
== END 2019-07-09 18:22 | disposition home or self-care (01) | DRG 629 ==
LOC: ER 18:47 → ERHOLD 20:48 → MED/SURG2 21:36
PROVIDERS: ADMIT Internal Medicine; ATTEND Internal Medicine
PROC: 0JQR0ZZ Repair Left Foot Subcutaneous Tissue and Fascia, Open Approach (ICD-10-PCS; 2019-07-05)
PROC: 0QBR0ZZ Excision of Left Toe Phalanx, Open Approach (ICD-10-PCS; principal; 2019-07-05 11:56)
PROC: 02HV33Z Insertion of Infusion Device into Superior Vena Cava, Percutaneous Approach (ICD-10-PCS; 2019-07-09)
PROC: 0JH63XZ Insertion of Tunneled Vascular Access Device into Chest Subcutaneous Tissue and Fascia, Percutaneous Approach (ICD-10-PCS; 2019-07-09)
DX: E11.69 Type 2 diabetes mellitus with other specified complication (principal); M86.8X7 Other osteomyelitis, ankle and foot; N18.3 Chronic kidney disease, stage 3 (moderate); E11.622 Type 2 diabetes mellitus with other skin ulcer; E11.21 Type 2 diabetes mellitus with diabetic nephropathy; E11.22 Type 2 diabetes mellitus with diabetic chronic kidney disease; I12.9 Hypertensive chronic kidney disease with stage 1 through stage 4 chronic kidney disease, or unspecified chronic kidney disease; D64.9 Anemia, unspecified; E78.5 Hyperlipidemia, unspecified; D72.829 Elevated white blood cell count, unspecified; E11.40 Type 2 diabetes mellitus with diabetic neuropathy, unspecified; Z79.4 Long term (current) use of insulin
CPT/HCPCS: 36415; 36558; 71046; 74470; 76937; 77001; 80048; 80053; 80202; 82948; 83036; 83735; 85025; 85610; 85651; 85730; 86140; 87071; 87075; 87205; 88304; 88305; 88311; 93005; 99284; J1817; J1885; J2001; J2405; J2543; J2710; J3010; J3370; J7050; Q4150